=== PATIENT | female | born 1975 | race Caucasian/White ===

== ENCOUNTER 2018-04-24 11:04 | Emergency (ER) | payer OTHER, SELFPAY ==
[2018-04-24 11:11] VITALS: BP 113/82; PULSE 80; RESP 18; TEMP 36.2; O2SAT 100
[2018-04-24 11:43] VITALS: BP 109/73; PULSE 67; RESP 16; O2SAT 100
[2018-04-24 12:15] VITALS: BP 114/75; PULSE 73; RESP 21; O2SAT 100
--- NOTE | 2018-04-24 12:22 | ED_ITS ---
HPI - Dizziness General Chief Complaint: Dizziness Stated Complaint: VERTIGO Time Seen by Provider: 04/24/18 12:08 Source: patient Mode of arrival: ambulatory Limitations: no limitations History of Present Illness HPI Narrative: Patient is a 43-year-old female who presents with acute sudden onset of dizziness. She has a history of vertigo but she says only 1 attack it is very mild. This morning she rolled over in bed and started acutely. Every time she opens her eyes or moves she feels that she is spinning. She cannot tell if it is 1 direction versus another direction she feels almost all the time. She feels nauseous she was dry heaving this morning. No chest pain or heart palpitations. She has not had any fever or chills no weakness or difficulty speaking MD complaint: dizziness Related Data Home Medications Medication Instructions Recorded Confirmed Nature-Throid 1 tab PO DAILY 04/24/18 04/24/18 Vitamin D3 1 cap PO DAILY 04/24/18 04/24/18 chromium chloride 1 tab PO DAILY 04/24/18 04/24/18 iron 1 tab PO DAILY 04/24/18 04/24/18 selenium 1 tab PO DAILY 04/24/18 04/24/18 vitamin B complex 1 tab PO DAILY 04/24/18 04/24/18 Previous Rx's Medication Instructions Recorded diazepam 2 mg PO BID-TID PRN #10 tab 04/24/18 ondansetron 4 mg PO Q6-8H PRN #10 tab 04/24/18 Allergies Allergy/AdvReac Type Severity Reaction Status Date / Time No Known Drug Allergies Allergy Verified 04/24/18 11:10 Review of Systems Review of Systems Constitutional Denies chills, Denies fever(s), Denies lethargy and Denies weakness Eyes Denies change in vision, Denies eye discharge, Denies irritation and Denies loss of vision ENT Ears, Nose, Mouth, and Throat: Reports vertigo and Reports dizziness Cardiovascular Denies chest pain, Denies syncope, Denies irregular heart rhythm, Denies lightheadedness, Denies palpitations, Denies dyspnea, Denies dyspnea on exertion and Denies orthopnea Respiratory Denies cough, Denies dyspnea, Denies dyspnea on exertion and Denies wheezing Gastrointestinal Gastrointestinal: Denies abdominal pain, Denies change in bowel habits, Denies diarrhea, Denies nausea and Denies vomiting Musculoskeletal Denies back pain, Denies muscle weakness, Denies numbness and Denies tingling Integumentary/Breasts Denies pruritus, Denies erythema, Denies rash and Denies wounds Neurologic Reports vertigo, Reports dizziness, Denies syncope, Denies loss of vision, Denies numbness, Denies tingling and Denies weakness Endocrine Denies palpitations Allergic/Immunologic Denies wheezing PFSH Medical History Hypothyroid (Chronic) Social History Smoking Status: Never smoker Social History Smoking Status: Never smoker Exam Initial Vital Signs Initial Vital Signs: Vital Signs Temperature 97.1 F L 04/24/18 11:11 Pulse Rate 80 04/24/18 11:11 Respiratory Rate 18 04/24/18 11:11 Blood Pressure 113/82 04/24/18 11:11 Pulse Oximetry 100 04/24/18 11:11 GENERAL: Well-appearing, well-nourished and in no acute distress. HEENT: Head atraumatic,EOMI, pupils reactive, face symmetric, moist mucous membranes CARDIOVASCULAR: Regular rate and rhythm without murmurs, rubs or gallops. RESPIRATORY: Breath sounds equal bilaterally, no wheezes rales or rhonchi. ABDOMEN: Soft, nontender. Normoactive bowel sounds all 4 quadrants. No guarding or rebound. EXTREMITIES: Normal range of motion, no clubbing or edema. Neurovascularly intact NEUROLOGICAL: Alert and oriented x4.Normal gait and speech. Cranial nerves II through XII grossly intact. Good [id number], good [id number]-ot-ppyw, strength equal bilaterally, no dysarthria or aphasia, sensation in tact to soft touch bilaterally, no visual changes, no facial droop SKIN: Warm, dry, no laceration, no petechiae, no rashes or lesions. Scores NIH Stroke Scale Level of Conciousness: Alert, keenly responsive Ask month/age: Answers both questions correctly. Open/close eyes, close hand: Performs both tasks correctly Best gaze horizontal: Normal Visual horan: No visual loss Facial palsy: Normal symetrical movement Left arm drift: No drift for full 10 sec Right arm drift: No drift for full 10 sec Left leg drift: No drift for full 10 sec Right leg drift: No drift for full 10 sec Limb ataxia: Absent Sensory on face/arms/legs: Normal, no sensory loss Best language: No aphasia, normal Dysarthria: Normal Extinction or inattention: No abnormality Total NIH Stroke scale score: 0 Course Orders Ordered: ED Orders 04/24/18 12:17 EKG-12 Lead Stat 04/24/18 12:25 Basic Metabolic Panel Stat Complete Blood Count AUTO DIFF Stat Thyroid Stimulating Hormone Stat Discontinued Medications Diazepam (Valium) 2 mg IV NOW ONE Stop: 04/24/18 13:16 Last Admin: 04/24/18 13:30 Dose: 2 mg Sodium Chloride (Normal Saline 0.9%) 1,000 mls @ 1,000 mls/hr IV BOLUS ONE Stop: 04/24/18 13:16 Last Infusion: 04/24/18 14:16 Dose: 0 mls/hr Admin: 04/24/18 12:30 Dose: 1,000 mls/hr Meclizine HCl (Antivert) 25 mg PO NOW ONE Stop: 04/24/18 12:18 Last Admin: 04/24/18 12:30 Dose: 25 mg Ondansetron HCl (Zofran) 4 mg IV NOW ONE Stop: 04/24/18 12:18 Last Admin: 04/24/18 12:30 Dose: 4 mg Vital Signs - 8 hr 04/24/18 11:43 04/24/18 12:15 04/24/18 13:00 Pulse Rate 67 73 63 Respiratory Rate 16 21 17 Blood Pressure [Left Arm] 109/73 114/75 113/57 L Pulse Oximetry 100 100 100 04/24/18 14:00 Pulse Rate 70 Respiratory Rate 20 Blood Pressure [Left Arm] 101/67 Pulse Oximetry 100 MDM - Dizziness Lab Data Attestation: I reviewed the patient's lab results. Result diagrams: 04/24/18 12:25 04/24/18 12:25 Lab Results 04/24/18 04/24/18 04/24/18 Range/Units 12:25 12:25 12:25 WBC 5.6 (4.5-11.0) X10^3/uL RBC 4.78 (4.0-5.2) X10^6/uL Hgb 12.7 (12.0-16.0) g/dL Hct 38.8 (36-46) % MCV 81.2 (80-100) fL MCH 26.5 (26-34) PG MCHC 32.7 (30-36) % RDW 14.3 (11.6-14.8) % Plt Count 215 (150-400) X10^3/uL Neut % (Auto) 76.3 H (50-75) % Lymph % (Auto) 15.0 L (25-40) % [place] % (Auto) 7.9 (3-14) % Eos % (Auto) 0.4 L (2-4) % Baso % (Auto) 0.4 (0-2) % Neut # (Auto) 4300 (5988-6384) /uL Lymph # (Auto) 800 L (2089-1590) /uL [place] # (Auto) 400 (0-900) /uL Eos # (Auto) 0 (0-450) /uL Baso # (Auto) 0 (0-100) /uL Sodium 138 (137-145) mmol/L Potassium 3.9 (3.4-5.1) mmol/L Chloride 104 (98-107) mmol/L Carbon Dioxide 25 (22-32) mmol/L BUN 17 (7-17) mg/dL Creatinine 0.70 (0.52-1.04) mg/dL Estimated GFR > 60.0 (>60) mL/min BUN/Creatinine Ratio 24.3 H (6-22) Glucose 106 H (70-100) mg/dL Calcium 9.1 (8.4-10.2) mg/dL TSH 0.19 L (0.47-4.68) uIU/mL Point of Care Testing Test Results Negative Urine Dip Bedside Urine Glucose Negative Bedside Urine Bilirubin - Negative Bedside Urine Ketone - Negative Urine Specific [place] 1.015 Bedside Urine Occult Blood - Negative Bedside Urine pH 6.0 Bedside Urine Protein - Negative Bedside Urine Urobilinogen - Negative Bedside Urine Nitrite - Negative Bedside Urine Leukocytes - Negative Esterase ECG Data Attestation: I personally reviewed and interpreted this ECG as follows: Prior ECG tracings: not available for review Interpretation: normal sinus rhythm rate [address] changes mild T-wave inversions noted in V2 and V3 no ST depressions, IA interval 141 QRS 90 QTC 438 MDM Narrative Medical decision making narrative: The patient is overall feeling better. I have discussed with her her test results including thyroid. She is supposed to see her board handler today. Recommend rescheduling. she is awake looking at her phone overall appears much better than she did previously. Discharge Plan Departure Patient Disposition: Home Clinical Impression: Benign paroxysmal positional vertigo Discharge Date/Time: 04/24/18 14:38 Interventions: ED Discharge Assessment Last Done: 04/24/18 14:37 Instructions: DI for Benign Paroxysmal Positional Vertigo Activity Restrictions/Additional Instructions: *You have been diagnosed with benign paroxysmal positional vertigo *What to do: This should resolve spontaneously is just as it started Your TSH today is 0.19 *Continue to take medications as directed Valium 2 mg every 8-12 hours if needed for severe dizziness Zofran 4 mg every 6-8 hours if needed for nausea or vomiting *Follow up with your primary care provider in 2-3 days *Return to ER if you should have persistent dizziness, weakness, or any new, worsening or concerning symptoms Prescriptions: New diazepam 2 mg tablet 2 mg PO BID-TID PRN (Reason: dizziness or vertigo) Qty: 10 RF: 0 ondansetron 4 mg tablet,disintegrating 4 mg PO Q6-8H PRN (Reason: nausea and vomiting) Qty: 10 RF: 0 No Action Nature-Throid 1 tab PO DAILY RF: 0 Vitamin D3 1 cap PO DAILY RF: 0 chromium chloride 1 tab PO DAILY RF: 0 iron 1 tab PO DAILY RF: 0 selenium 1 tab PO DAILY RF: 0 vitamin B complex 1 tab PO DAILY RF: 0
[2018-04-24] MEDS: MECLIZINE HCL 12.5 MG TABLET 25 MG PO (12:30)
[2018-04-24] MEDS: SODIUM CHLORIDE 0.9% 1,000 ML 1000 ML IV (12:30)
[2018-04-24] MEDS: ONDANSETRON 4 MG/2 ML INJ IV (12:30)
[2018-04-24 12:36] LABS: Add Manual Diff / Slide Review NO; Basophils Absolute Auto 0 /uL (0-100); Basophils Percent Auto 0.4 % (0-2); Eosinophils Absolute Auto 0 /uL (0-450); Eosinophils Percent Auto 0.4 % (2-4); Hematocrit 38.8 % (36-46); Hemoglobin 12.7 g/dL (12.0-16.0); Lymphocytes Absolute Auto 800 /uL (1100-4500); Mean Corpuscular HGB Conc 32.7 % (30-36); Mean Corpuscular Hemoglobin 26.5 PG (26-34); Mean Corpuscular Volume 81.2 fL (80-100); Monocytes Absolute Auto 400 /uL (0-900); Monocytes Percent Auto 7.9 % (3-14); Neutrophils Absolute Auto 4300 /uL (1500-7000); Neutrophils Percent Auto 76.3 % (50-75); Platelet Count 215 X10^3/uL (150-400); Red Blood Cell Count 4.78 X10^6/uL (4.0-5.2); Red Cell Distribution Width 14.3 % (11.6-14.8); White Blood Cell Count 5.6 X10^3/uL (4.5-11.0)
[2018-04-24 12:47] LABS: BUN Creatinine Ratio 24.3 (6-22); Blood Urea Nitrogen 17 mg/dL (7-17); Calcium 9.1 mg/dL (8.4-10.2); Carbon Dioxide 25 mmol/L (22-32); Chloride 104 mmol/L (98-107); Estimated Glomerular Filt Rate > 60.0 mL/min (>60); Glucose 106 mg/dL (70-100); HEMOLYSIS < 15 (0-50); Potassium 3.9 mmol/L (3.4-5.1); Sodium 138 mmol/L (137-145)
[2018-04-24 13:00] VITALS: BP 113/57; PULSE 63; RESP 17; O2SAT 100
[2018-04-24 13:29] LABS: Thyroid Stimulating Hormone 0.19 uIU/mL (0.47-4.68)
[2018-04-24] MEDS: diazePAM 10 MG/2 ML SYRINGE 2 MG IV (13:30)
[2018-04-24 14:00] VITALS: BP 101/67; PULSE 70; RESP 20; O2SAT 100
== END 2018-04-24 14:38 | disposition home or self-care (01) ==
PROVIDERS: Emergency Provider Emergency Medicine
DX: H81.10 Benign paroxysmal vertigo, unspecified ear (principal)
CPT/HCPCS: 36591; 80048; 81003; 81025; 84443; 85025; 93005; 96361; 96374; 96375; 99283; 99284; J2405; J3360

== ENCOUNTER 2024-06-17 12:19 | Day surgery (SDC) | payer OTHER, SELFPAY ==
[2024-06-11 12:29] VITALS: BMI 25.3
--- NOTE | 2024-06-17 | PATH_ITS ---
[facility] Accession Number: [id number] No. of containers..01 Tissue . 01 Material submitted: . endometrium - ENDOMETRIAL CONTENTS . 01 Diagnosis: ENDOMETRIAL CONTENTS, CURETTINGS: Fragments of benign endometrial polyp. Associated disordered proliferative endometrium. Negative for atypia, hyperplasia, or malignancy. MRV 06/20/2024 1455 Local . 01 Electronically signed: . Prakash Matta MD, Pathologist NPI- [id number] . 01 Gross description: . ENDOMETRIAL CONTENTS: Received in formalin are minute fragments of mucoid and hemorrhagic material measuring 4.0 x 2.5 x 0.4 cm in aggregate. Submitted in toto in 2 cassettes. /LUZMARIA 06/18/2024 2105 Local . 01 Pathologist provided ICD-10: N84.0, N93.9, R93.89 . 01 CPT . 383988 Specimen Comment: A courtesy copy of this report has been sent to [facility] Performed at: [address] [address], [place], [place] [id number] MD Eliseo Reyes MD Phone: [phone]
[2024-06-17] MEDS: SCOPOLAMINE 1 PATCH TOP (14:04)
[2024-06-17] MEDS: ACETAMINOPHEN 325 MG TABLET 975 MG PO (14:04)
[2024-06-17] MEDS: LACTATED RINGERS 1,000 ML 42 ML IV ×2 (14:04→16:03)
[2024-06-17 14:27] VITALS: BP 124/70; PULSE 70; RESP 16; TEMP 36.7; O2SAT 100; BMI 25.3
--- NOTE | 2024-06-17 14:59 | PM.PREOP ---
Pre-operative Note Interval Note History & Physical reviewed/Exam performed by Physician: Yes Changes to H&P: No ASA Class (for procedural sedation): II
--- NOTE | 2024-06-17 15:48 | SUR.OPER ---
Lithotomy on padded OR bed, head on pillow, arms secured on padded arm boards at <90 degrees abduction. Legs secured in padded yellow fins stirrups.
[2024-06-17] MEDS: SILVER NITRATE STICK 1 EACH TOP (15:57)
[2024-06-17 16:06] VITALS: BP 107/66; PULSE 100; RESP 16; TEMP 36.4; O2SAT 99
[2024-06-17 16:11] VITALS: BP 112/75; PULSE 99; RESP 16; O2SAT 100
[2024-06-17 16:16] VITALS: BP 121/79; PULSE 99; RESP 16; O2SAT 100
[2024-06-17 16:21] VITALS: BP 120/74; PULSE 88; RESP 16; TEMP 36.3; O2SAT 100
--- NOTE | 2024-06-17 16:23 | PM.OP.1 ---
Operative Date/Time/Diagnoses Date of procedure: 06/17/24 Time of procedure: 15:00 Pre-op diagnosis: AUB, abnormal pelvic ultrasound Post-op diagnosis: same Procedure & Clinicians Procedure: hysteroscopy, myosure polypectomy, dilation and curettage Same procedure as scheduled: Yes Indications: abnormal uterine bleeding abnormal pelvic ultrasound abnormal pap (AGC/HR-HPV negative) Surgeon: Michelle Sal Click Yes if Unassisted: Yes Anesthesia Type: General Operative Notes Findings: normal external female genitalia, perineum patulous cervix, prolapse to -1 intrauterine cavity with fundal endometrial polyp x2, possible second endocervical polyp Closure Type: not applicable Specimen(s): other (endometrial contents ) Estimated Blood Loss (mL): 10 Procedure in detail: Pt was taken to the operating room, transferred to OR table and anesthesia was induced with placement of LMA.? Pt had her legs placed in Chance stirrups and an exam under anesthesia was performed. The patient was prepped and draped in a sterile fashion.? A time out was performed. ?The bladder was emptied via straight catheter in sterile fashion.? A sterile speculum was inserted into the vagina.? The cervix was visualized and grasped anteriorly using a single tooth tenaculum.? The uterus sounded to 10cm and the cervical os was serially dilated using Graf dilators up to 17f to allow for passage of the hysteroscope.? The 5mm 0 degree hysteroscope was then inserted into the uterus with findings as noted.? The small Mysoure device was introduced and the endometrial polyps were fractionally resected under direct visualization in addition to the presumed endocervical polyp. The hysteroscope was removed and the uterus was sharply curetted until a gritty texture was noted throughout.? The tenaculum was removed and hemostasis was noted at insertion sites.? The speculum was removed and hemostasis was again noted to be excellent.? The patient then had her legs taken out of stirrups.? The patient tolerated the procedure well and without difficulty.? The patient was awakened from anesthesia and taken to PACU in stable condition. Complications: none Post-operative Condition: stable Disposition: PACU Plan for aftercare: dc to home pending clinical recovery, routine f/u in office as scheduled
[2024-06-17 16:27] VITALS: BP 123/73; PULSE 73; RESP 16; TEMP 36.4; O2SAT 100
[2024-06-17] MEDS: hydrOXYzine 50 MG/ML INJ 25 MG IM (16:57)
[2024-06-17] MEDS: OXYCODONE IR 5 MG TABLET PO (16:57)
--- NOTE | 2024-06-17 17:25 | SUR.PHASEII ---
Spoke with DR Allen on telephone for patient headache. See new order for Toradol IV x1
[2024-06-17] MEDS: KETOROLAC 30 MG/ML VIAL IV (17:36)
== END 2024-06-17 17:55 | disposition home or self-care (01) ==
PROVIDERS: PCP Physician Assistant Medical; Referring Provider Obstetrics & Gynecology; Visit Provider Obstetrics & Gynecology
PROC: 0UDB8ZZ Extraction of Endometrium, Via Natural or Artificial Opening Endoscopic (ICD-10-PCS; CPT 58558; principal; 2024-06-17 13:30)
DX: N93.9 Abnormal uterine and vaginal bleeding, unspecified (principal); N84.0 Polyp of corpus uteri
CPT/HCPCS: 58558; 81025; J1885; J2704; J3010; J3410

== ENCOUNTER 2025-03-04 13:53 | Emergency (ER) | payer OTHER, SELFPAY ==
[2025-03-04 14:06] VITALS: BP 128/68; PULSE 71; RESP 16; TEMP 36.7; O2SAT 100; BMI 25.0
--- NOTE | 2025-03-04 14:21 | ED.FEMALEGU ---
HPI - Female Genitourinary <Andry Diaz MD - Last Filed: 03/04/25 15:06> General Chief complaint: Vaginal Bleeding Stated complaint: heavy bleeding 12 days Time Seen by Provider: 03/04/25 14:18 Source: patient Mode of arrival: Ambulatory History of Present Illness HPI Narrative: Patient here for vaginal bleeding for the past 12 days. Patient had hysteroscopy polypectomy D and C for abnormal uterine bleeding at this facility. Patient states since her procedure she has had spotting and her menstrual cycle has had shorter intervals with longer lasting bleeding times and heavier bleeding. Last 12 days has been heavier than usual. With clots. No syncope no shortness of breath sometimes dizzy though. Patient in no distress at this time. Has chronic anemia. Has had iron transfusions in the past. Never had blood transfusions. [address] [address] Operative Note Patient: Sheron Varner MR#: [id number] : 1975 Acct:[id number] Age/Sex: 49 / F Admit Date: 06/17/24 Provider: Michelle Sal MD Operative Date/Time/Diagnoses Date of procedure: 06/17/24 Time of procedure: 15:00 Pre-op diagnosis: AUB, abnormal pelvic ultrasound Post-op diagnosis: same Procedure & Clinicians Procedure: hysteroscopy, myosure polypectomy, dilation and curettage Same procedure as scheduled: Yes Indications: abnormal uterine bleeding abnormal pelvic ultrasound abnormal pap (AGC/HR-HPV negative) Surgeon: Michelle Sal Click Yes if Unassisted: Yes Anesthesia Type: General Operative Notes Findings: normal external female genitalia, perineum patulous cervix, prolapse to -1 intrauterine cavity with fundal endometrial polyp x2, possible second endocervical polyp Closure Type: not applicable Specimen(s): other (endometrial contents ) Estimated Blood Loss (mL): 10 Procedure in detail: Related Data Home Medications ?Medication ?Instructions ?Recorded ?Confirmed Nature-Throid 1 tab PO DAILY 04/24/18 07/16/24 Vitamin D3 1 cap PO DAILY 04/24/18 07/16/24 chromium chloride 1 tab PO DAILY 04/24/18 07/16/24 iron 1 tab PO DAILY 04/24/18 07/16/24 selenium 1 tab PO DAILY 04/24/18 07/16/24 vitamin B complex 1 tab PO DAILY 04/24/18 07/16/24 thyroid (pork) 15 mg tablet ([employer]ER 15 mg PO QAM 06/17/24 07/16/24 Thyroid) Previous Rx's ?Medication ?Instructions ?Recorded ondansetron 4 mg disintegrating 4 mg PO Q6-8H PRN nausea and 04/24/18 tablet vomiting #10 tabs ibuprofen 800 mg tablet 800 mg PO TID PRN pain #14 tabs 06/17/24 oxycodone 5 mg capsule 5 mg PO Q6H PRN pain #3 caps 06/17/24 tranexamic acid 650 mg tablet 650 mg PO Q8H 7 days #21 tabs 07/16/24 Allergies Allergy/AdvReac Type Severity Reaction Status Date / Time No Known Drug Allergies Allergy Verified 07/16/24 14:57 Review of Systems <Andry Diaz MD - Last Filed: 03/04/25 15:06> Review of Systems Narrative: GENERAL: Negative chills, fatigue, malaise, fever, sweats. HEENT: Negative sinus pain, ear pain, sore throat RESPIRATORY: Negative dyspnea, cough CARDIOVASCULAR: Negative chest pain, palpitations GASTROINTESTINAL: Negative vomiting, nausea, abdominal pain : Negative dysuria, frequency, hematuria, positive vaginal bleeding MUSCULOSKELETAL: Negative muscle or bony pain SKIN: Negative rash, skin lesions NEUROLOGIC: Negative weakness, numbness, positive dizzy ROS Unobtainable: All systems reviewed & are unremarkable except as noted in HPI and below Patient History <Andry Diaz MD - Last Filed: 03/04/25 15:06> Medical History (Updated 03/04/25 @ 20:26 by Nav Jain MD) Encounter for fitting and adjustment of pessary Uterovaginal prolapse, incomplete Abnormal pelvic ultrasound Shoulder pain (~2023) Anemia (~2014) Heavy menstrual period (~1999) Abnormal uterine bleeding (AUB) Hypothyroid (~2003) Exam <Andry Diaz MD - Last Filed: 03/04/25 15:06> Narrative Exam Narrative: GENERAL: in no distress, not toxic not dyspneic HEAD: Normocephalic. EYES: Pupils equal round, pale conjunctiva ENT: Mucous membranes moist. NECK: Trachea midline. CARDIOVASCULAR: Regular rate and rhythm. Brisk cap refills on the fingers RESPIRATORY: Clear to auscultation. Breath sounds equal bilaterally. No wheezes, rales, or rhonchi. GASTROINTESTINAL: Abdomen soft, nontender EXTREMITIES: No gross deformities. NEURO: AOx4. Clear speech SKIN: Warm and dry PSYCH: Not anxious, is cooperative Initial Vital Signs Initial Vital Signs: Vital Signs Temperature 98.0 F 03/04/25 14:06 Pulse Rate 71 03/04/25 14:06 Respiratory Rate 16 03/04/25 14:06 Blood Pressure 128/68 03/04/25 14:06 Pulse Oximetry 100 03/04/25 14:06 Oxygen Delivery Method Room Air 03/04/25 14:06 <Nav Jain MD - Last Filed: 03/04/25 20:27> Initial Vital Signs Initial Vital Signs: Vital Signs Temperature 98.0 F 03/04/25 14:06 Pulse Rate 71 03/04/25 14:06 Respiratory Rate 16 03/04/25 14:06 Blood Pressure 128/68 03/04/25 14:06 Pulse Oximetry 100 03/04/25 14:06 Oxygen Delivery Method Room Air 03/04/25 14:06 Course <Andry Diaz MD - Last Filed: 03/04/25 15:06> Orders Ordered: ED Orders 03/04/25 14:42 Type and Screen Stat 03/04/25 14:46 Complete Blood Count AUTO DIFF Stat Comprehensive Metabolic Panel Stat 03/04/25 17:30 Urine Microscopic Stat Discontinued Medications Tranexamic Acid 1,000 mg/ (Sodium Chloride) 100 mls @ 200 mls/hr IV NOW ONE Stop: 03/04/25 15:40 Last Infusion: 03/04/25 18:19 Dose: Infused Documented By: Infusion: 03/04/25 17:25 Dose: 200 mls/hr Documented By: Infusion: 03/04/25 16:50 Dose: 0 mls/hr Documented By: Admin: 03/04/25 16:50 Dose: 200 mls/hr Documented By: MATHEUS Vital Signs Vital signs: Vital Signs - 8 hr 03/04/25 14:06 Temperature 98.0 F Pulse Rate 71 Respiratory Rate 16 Blood Pressure 128/68 Pulse Oximetry 100 Oxygen Delivery Method Room Air <Nav Jain MD - Last Filed: 03/04/25 20:27> Course Course Narrative: 1999 the patient was signed out to me by the day doctor the patient was ordered TXA for vaginal bleeding I observed the patient for a while after the TXA finish she said the vaginal bleeding had improved and the patient will be discharged home. She was advised to follow up with her bed teacher in the next day or 2. Orders Ordered: ED Orders 03/04/25 14:42 Type and Screen Stat 03/04/25 14:46 Complete Blood Count AUTO DIFF Stat Comprehensive Metabolic Panel Stat 03/04/25 17:30 Urine Microscopic Stat Discontinued Medications Tranexamic Acid 1,000 mg/ (Sodium Chloride) 100 mls @ 200 mls/hr IV NOW ONE Stop: 03/04/25 15:40 Last Infusion: 03/04/25 18:19 Dose: Infused Documented By: Infusion: 03/04/25 17:25 Dose: 200 mls/hr Documented By: Infusion: 03/04/25 16:50 Dose: 0 mls/hr Documented By: Admin: 03/04/25 16:50 Dose: 200 mls/hr Documented By: MATHEUS Vital Signs Vital signs: Vital Signs - 8 hr 03/04/25 14:06 Temperature 98.0 F Pulse Rate 71 Respiratory Rate 16 Blood Pressure 128/68 Pulse Oximetry 100 Oxygen Delivery Method Room Air MDM - Female Genitourinary <Andry Diaz MD - Last Filed: 03/04/25 15:06> Lab Data 03/04/25 14:46 03/04/25 14:46 Labs: Lab Results 03/04/25 03/04/25 03/04/25 Range/Units 14:42 14:46 17:30 WBC 6.9 (4.5-11.0) X10^3/uL RBC 4.33 (4.0-5.2) X10^6/uL Hgb 9.5 L (12.0-16.0) g/dL Hct 29.2 L (36-46) % MCV 67.5 L (80-100) fL MCH 22.0 L (26-34) PG MCHC 32.6 (30-36) % RDW 28.9 H (11.6-14.8) % Plt Count 230 (150-400) X10^3/uL Neut % (Auto) 69.2 (50-75) % Lymph % (Auto) 21.0 L (25-40) % [place] % (Auto) 8.0 (3-14) % Eos % (Auto) 1.4 L (2-4) % Baso % (Auto) 0.4 (0-2) % Neut # (Auto) 4800 (8808-9705) /uL Lymph # (Auto) 1400 (8216-1753) /uL [place] # (Auto) 500 (0-900) /uL Eos # (Auto) 100 (0-450) /uL Baso # (Auto) 0 (0-100) /uL Platelet Estimate Adequate on smear Plt Morphology Comment RBC Morphology See below Anisocytosis 3+ H Microcytosis 2+ H Sodium 138 (137-145) mmol/L Potassium 4.0 (3.4-5.1) mmol/L Chloride 103 (98-107) mmol/L Carbon Dioxide 23 (22-32) mmol/L BUN 15 (7-17) mg/dL Creatinine 1.36 H (0.52-1.04) mg/dL Estimated GFR 48 L (>60) mL/min BUN/Creatinine Ratio 11.0 (6-22) Glucose 97 (70-99) mg/dL Calcium 8.8 (8.4-10.2) mg/dL Total Bilirubin 0.1 L (0.2-1.3) mg/dL AST 29 (14-36) IU/L ALT 23 (<35) IU/L Alkaline Phosphatase 60 (38-126) U/L Total Protein 7.3 (6.3-8.2) g/dL Albumin 4.4 (3.5-5.0) g/dL Globulin 2.9 (1.7-4.1) g/dL Albumin/Globulin Ratio 1.5 (1.0-2.8) Urine RBC 1-5/hpf (0-5/HPF) Urine WBC 0-1/hpf (0-5/HPF) Ur Squamous Epith Cells 0-1 /hpf (0-5/HPF) Urine Bacteria Occasional (0-1) (None) Ur Culture Indicated? Cult not indicated Vol Urine Centrifuged 10ml (spun) Blood Type O Positive Antibody Screen Negative Point of Care Testing Test Results Negative Urine Dip Bedside Urine Glucose Negative Bedside Urine Bilirubin - Negative Bedside Urine Ketone - Negative Urine Specific [place] 1.005 Bedside Urine Occult Blood +++ Bedside Urine pH 6.0 Bedside Urine Protein - Negative Bedside Urine Urobilinogen - Negative Bedside Urine Nitrite - Negative Bedside Urine Leukocytes - Negative Esterase MDM Narrative Medical decision making narrative: Patient here for vaginal bleeding for the past 12 days. Patient had hysteroscopy polypectomy D and C for abnormal uterine bleeding at this facility. Patient states since her procedure she has had spotting and her menstrual cycle has had shorter intervals with longer lasting bleeding times and heavier bleeding. Last 12 days has been heavier than usual. With clots. No syncope no shortness of breath sometimes dizzy though. Patient in no distress at this time. Has chronic anemia. Has had iron transfusions in the past. Never had blood transfusions. MDM After history and exam, CBC CMP type and screen Differential considered: Includes but not limited to dysfunctional uterine bleeding Medical records reviewed: June 17, 2024 operative notes with OBGYN at this facility Lab Test results independently reviewed as above. Pertinent findings: Consultations: Re-evaluations: Discussion: 3:[address] Diaz: Sign-out to Dr. Jain, labs are pending. We will need to contact patient's provider/OBGYN with results and disposition plan Dr Sal Diagnosis: <Nav Jain MD - Last Filed: 03/04/25 20:27> Lab Data Labs: Lab Results 03/04/25 03/04/25 03/04/25 Range/Units 14:42 14:46 17:30 WBC 6.9 (4.5-11.0) X10^3/uL RBC 4.33 (4.0-5.2) X10^6/uL Hgb 9.5 L (12.0-16.0) g/dL Hct 29.2 L (36-46) % MCV 67.5 L (80-100) fL MCH 22.0 L (26-34) PG MCHC 32.6 (30-36) % RDW 28.9 H (11.6-14.8) % Plt Count 230 (150-400) X10^3/uL Neut % (Auto) 69.2 (50-75) % Lymph % (Auto) 21.0 L (25-40) % [place] % (Auto) 8.0 (3-14) % Eos % (Auto) 1.4 L (2-4) % Baso % (Auto) 0.4 (0-2) % Neut # (Auto) 4800 (0430-1514) /uL Lymph # (Auto) 1400 (7068-3801) /uL [place] # (Auto) 500 (0-900) /uL Eos # (Auto) 100 (0-450) /uL Baso # (Auto) 0 (0-100) /uL Platelet Estimate Adequate on smear Plt Morphology Comment RBC Morphology See below Anisocytosis 3+ H Microcytosis 2+ H Sodium 138 (137-145) mmol/L Potassium 4.0 (3.4-5.1) mmol/L Chloride 103 (98-107) mmol/L Carbon Dioxide 23 (22-32) mmol/L BUN 15 (7-17) mg/dL Creatinine 1.36 H (0.52-1.04) mg/dL Estimated GFR 48 L (>60) mL/min BUN/Creatinine Ratio 11.0 (6-22) Glucose 97 (70-99) mg/dL Calcium 8.8 (8.4-10.2) mg/dL Total Bilirubin 0.1 L (0.2-1.3) mg/dL AST 29 (14-36) IU/L ALT 23 (<35) IU/L Alkaline Phosphatase 60 (38-126) U/L Total Protein 7.3 (6.3-8.2) g/dL Albumin 4.4 (3.5-5.0) g/dL Globulin 2.9 (1.7-4.1) g/dL Albumin/Globulin Ratio 1.5 (1.0-2.8) Urine RBC 1-5/hpf (0-5/HPF) Urine WBC 0-1/hpf (0-5/HPF) Ur Squamous Epith Cells 0-1 /hpf (0-5/HPF) Urine Bacteria Occasional (0-1) (None) Ur Culture Indicated? Cult not indicated Vol Urine Centrifuged 10ml (spun) Blood Type O Positive Antibody Screen Negative Point of Care Testing Test Results Negative Urine Dip Bedside Urine Glucose Negative Bedside Urine Bilirubin - Negative Bedside Urine Ketone - Negative Urine Specific [place] 1.005 Bedside Urine Occult Blood +++ Bedside Urine pH 6.0 Bedside Urine Protein - Negative Bedside Urine Urobilinogen - Negative Bedside Urine Nitrite - Negative Bedside Urine Leukocytes - Negative Esterase Discharge Plan Departure Patient Disposition: Home Clinical Impression: Dysfunctional uterine bleeding Instructions: DI for Vaginal Bleeding Prescriptions: No Action tranexamic acid 650 mg tablet 650 mg PO Q8H 7 Days Qty: 21 6RF Nature-Throid 1 tab PO DAILY Vitamin D3 1 cap PO DAILY chromium chloride 1 tab PO DAILY iron 1 tab PO DAILY selenium 1 tab PO DAILY vitamin B complex 1 tab PO DAILY ondansetron 4 mg tablet,disintegrating 4 mg PO Q6-8H PRN (Reason: nausea and vomiting) Qty: 10 0RF thyroid (pork) [E[employer]ER Thyroid] 15 mg tablet 15 mg PO QAM ibuprofen 800 mg tablet 800 mg PO TID PRN (Reason: pain) Qty: 14 0RF oxycodone 5 mg capsule 5 mg PO Q6H PRN (Reason: pain) Qty: 3 0RF Referrals: Meenu Sauceda ARNP [Primary Care Provider, Family Practice] Stand Alone Forms: Patient Portal/API
[2025-03-04 15:13] LABS: Alanine Aminotransferase 23 IU/L (<35); Albumin 4.4 g/dL (3.5-5.0); Albumin Globulin Ratio 1.5 (1.0-2.8); Alkaline Phosphatase 60 U/L (38-126); Blood Urea Nitrogen 15 mg/dL (7-17); Calcium 8.8 mg/dL (8.4-10.2); Carbon Dioxide 23 mmol/L (22-32); Chloride 103 mmol/L (98-107); Estimated Glomerular Filt Rate 48 mL/min (>60); Globulin 2.9 g/dL (1.7-4.1); Glucose 97 mg/dL (70-99); HEMOLYSIS < 15 (0-50); Potassium 4.0 mmol/L (3.4-5.1); Sodium 138 mmol/L (137-145); Total Protein 7.3 g/dL (6.3-8.2)
[2025-03-04 15:17] LABS: Add Manual Diff / Slide Review NO; Hematocrit 29.2 % (36-46); Hemoglobin 9.5 g/dL (12.0-16.0); Lymphocytes Absolute Auto 1400 /uL (1100-4500); Mean Corpuscular HGB Conc 32.6 % (30-36); Mean Corpuscular Hemoglobin 22.0 PG (26-34); Mean Corpuscular Volume 67.5 fL (80-100); Platelet Count 230 X10^3/uL (150-400)
[2025-03-04 15:44] LABS: Anisocytosis 3+; Microcytosis 2+
[2025-03-04] MEDS: TRANEXAMIC ACID 1,000 MG in SODIUM CHLORIDE 0.9% 100 ML 200 MG IV (16:50)
[2025-03-04 17:49] LABS: Culture Indicated Urine Cult Not Indicated
[2025-03-04 20:33] VITALS: BP 116/67; PULSE 82; RESP 18; TEMP 36.9; O2SAT 99
== END 2025-03-04 20:39 | disposition home or self-care (01) ==
PROVIDERS: Emergency Provider Emergency Medicine; PCP Registered Nurse
DX: N93.8 Other specified abnormal uterine and vaginal bleeding (principal)
CPT/HCPCS: 36415; 80053; 81003; 81015; 81025; 85025; 86850; 86900; 86901; 96365; 99284; J7050

== ENCOUNTER → 2025-03-13 09:26 | Oncology outpatient (ONC) | payer OTHER, SELFPAY ==
[2025-03-13 09:50] VITALS: BP 107/63; PULSE 80; RESP 14; TEMP 36.6; O2SAT 99
[2025-03-13] MEDS: IRON SUCROSE 200 MG in SODIUM CHLORIDE 0.9% 100 ML 220 MG IV (10:03)
[2025-03-13 11:20] VITALS: BP 109/61; PULSE 74; RESP 16; TEMP 36.5; O2SAT 100
== END ==
LOC: ONC 09:26
PROVIDERS: PCP Registered Nurse; Referring Provider Obstetrics & Gynecology; Visit Provider Obstetrics & Gynecology
DX: D50.0 Iron deficiency anemia secondary to blood loss (chronic) (principal); N93.8 Other specified abnormal uterine and vaginal bleeding
CPT/HCPCS: 96365; J1756; J7050